=== PATIENT | female | born 1950 | race Caucasian/White ===

== ENCOUNTER 2020-05-14 12:32 | Emergency (ER) | payer MEDICARE, BC ==
--- NOTE | 2020-05-14 15:19 | EDM.PDOC ---
ED HPI GENERAL MEDICAL PROBLEM - General Chief Complaint: General Stated Complaint: DRIVE IN COVID TEST Time Seen by Provider: 05/14/20 12:32 Source of Information: Reports: Patient History Limitations: Reports: No Limitations - History of Present Illness INITIAL COMMENTS - FREE TEXT/NARRATIVE: Pt came into the emergency department with concerns regarding COVID19 testing. Patient states that she has had symptoms of runny nose, cough, chest congestion, sore throat and fatigue and low-grade fever for the last 24 hours. Patient was also at a wedding yesterday and she is concerned since she was with a large amount of people. She states that she has not had any other symptoms or concerns. She denies any chest pain, shortness of breath, headache, dizziness, GI upset, edema. Dates she is been relatively healthy and has no other concerns or complaints currently. Nuys any symptoms progressively getting worse or better. Patient also states that she was around a large amount of cam[place] the last couple days states that her eyes have been more itchy and her nose has been running more. She describes the drainage as a clear drainage. Onset: Gradual Quality: Reports: Other Severity: Mild Improves with: Reports: None Worsens with: Reports: None Associated Symptoms: Reports: No Other Symptoms - Related Data Allergies Allergy/AdvReac Type Severity Reaction Status Date / Time peanut Allergy Airway Verified 07/13/15 12:23 Tightness penicillin Allergy Shortness Verified 07/12/15 10:34 of Breath Home Meds: Home Meds Aspirin [Halfprin] 81 mg PO DAILY 07/12/15 [History] Cholecalciferol (Vitamin D3) [Vitamin D3] 2,000 units PO DAILY 07/12/15 [History] Pravastatin [Pravachol] 20 mg PO DAILY 07/12/15 [History] Sertraline [Zoloft] 1 tab PO DAILY 07/12/15 [History] amLODIPine [Norvasc] 5 mg PO DAILY 07/12/15 [History] Past Medical History - Past Health History Medical/Surgical History: Denies Medical/Surgical History Other Genitourinary History: FM HX COLON CA ED ROS GENERAL - Review of Systems Review Of Systems: Comprehensive ROS is negative, except as noted in HPI. Constitutional: Reports: No Symptoms HEENT: Reports: No Symptoms Cardiovascular: Reports: No Symptoms Endocrine: Reports: No Symptoms GI/Abdominal: Reports: No Symptoms Musculoskeletal: Reports: No Symptoms Skin: Reports: No Symptoms Neurological: Reports: No Symptoms Psychiatric: Reports: No Symptoms Hematologic/Lymphatic: Reports: No Symptoms ED EXAM, GENERAL - Physical Exam Exam: See Below Exam Limited By: No Limitations General Appearance: Alert, WD/WN, No Apparent Distress Nose: Normal Inspection, Normal Mucosa, Nasal Drainage, Clear Rhinorrhea Throat/Mouth: Normal Inspection, Normal Lips, Normal Teeth, Normal Voice, No Airway Compromise Head: Atraumatic, Normocephalic Neck: Normal Inspection, Supple, Non-Tender, Full Range of Motion Respiratory/Chest: No Respiratory Distress, Lungs Clear, Normal Breath Sounds, No Accessory Muscle Use, Chest Non-Tender Cardiovascular: Normal Peripheral Pulses, Regular Rate, Rhythm, No Edema, No Rub Peripheral Pulses: 4+: Radial (L), Radial (R) GI/Abdominal: Normal Bowel Sounds, Soft, Non-Tender, No Distention Extremities: Normal Inspection, No Pedal Edema, Normal Capillary Refill Neurological: Alert, Oriented, CN II-XII Intact, Normal Cognition Psychiatric: Normal Affect, Normal Mood Skin Exam: Warm, Dry, Intact, Normal Color Course - Orders/Labs/Meds Orders: Active Orders 24 hr Category Date Time Status CORONAVIRUS COVID-19 PCR [facility] Stat Lab 05/14/20 15:11 Ordered Departure - Departure Time of Disposition: 12:40 Disposition: Home, Self-Care 01 Condition: Good Clinical Impression: Allergies Qualifiers: Encounter type: initial encounter Qualified Code(s): T78.40XA - Allergy, unspecified, initial encounter - Discharge Information *PRESCRIPTION DRUG MONITORING PROGRAM REVIEWED*: Not Applicable *COPY OF PRESCRIPTION DRUG MONITORING REPORT IN PATIENT SACHI: Not Applicable Instructions: Allergies, Adult, [id number] Forms: ED Department Discharge Additional Instructions: 1. rest 2. increase your water intake 3. Continue all at home medications 4. Activity and diet as tolerated 5. Can take over the counter Tylenol or ibuprofen for any pain or discomfort 6. Follow up with PCP if symptoms continue, return, or progress 7. Call with any questions or concerns - My Orders Last 24 Hours: My Active Orders 05/14/20 15:11 CORONAVIRUS COVID-19 PCR [facility] Stat - Assessment/Plan Last 24 Hours: My Active Orders 05/14/20 15:11 CORONAVIRUS COVID-19 PCR [facility] Stat Assessment:: 1. covid- test 2. cough 3. sore throat 4. headache Plan: 1. Covid-19- ER drive up testing completed. 2. Negative results called to the patient 3. Patient and nursing staff was updated regarding the plan of care 4. Education provided the patient regarding activity, diet, rest, [id number] medication modalities, and follow-up care was provided 5. Patient and family are agreeable to the above plan of care 6. All questions and concerns were addressed with the patient and family prior to discharge
[2020-05-14 16:49] VITALS: BP 141/81; PULSE 53
== END 2020-05-14 12:43 | disposition home or self-care (01) ==
LOC: VM.ED 12:32
DX: T78.40XA Allergy, unspecified, initial encounter (principal); Z20.828 Contact with and (suspected) exposure to other viral communicable diseases; Z91.010 Allergy to peanuts; Z88.0 Allergy status to penicillin; Z79.82 Long term (current) use of aspirin; Z79.899 Other long term (current) drug therapy
CPT/HCPCS: 99283; U0002

== ENCOUNTER 2021-02-09 10:38 | Day surgery (SDC) | payer MEDICARE, BC ==
[~2021-02-09 10:38] MED LIST: Lactated Ringers 1,000 ML IV SCH
[2021-02-09] MEDS ORDERED: Propofol 200 MG/20 ML SDV ONE ×5 (14:00→14:46)
[2021-02-09 15:30] VITALS: BP 116/72; PULSE 70
--- NOTE | 2021-02-10 09:39 | OR ---
DATE OF SURGERY: 02/09/2021 REFERRING PROVIDER: Ruth Valdes PA-C PRE-OPERATIVE DIAGNOSES: 1. Positive family history of colon cancer in both parents. The patient's last colonoscopy was 07/2015 and was normal. 2. Chronic constipation. The patient states she did throw up with the prep last night and had noted brown liquid stools at the end of the prep. POST-OPERATIVE DIAGNOSES: 1. Tortuous colon. I was only able to advance the scope to the mid right colon despite using multiple maneuvers and turning the patient onto her back. 2. Mild hemorrhoids. 3. Prep was fair to poor, which did affect visualization somewhat. PROCEDURE: Colonoscopy, but only able to advance to the mid right colon. SURGEON: Yuriy Salomon M.D. ANESTHESIA: Monitored anesthesia care. BOWEL PREP: Fair to poor, which did affect visualization. Maria R is a 70-year-old female, who was brought to the endoscopy suite after discussing risks and benefits of the procedure. Informed consent was obtained for conscious sedation and colonoscopy with or without biopsy and/or polypectomy. We also discussed possibility of missed lesions. Pre-procedure exam was unremarkable. IV, oxygen, and monitors were placed. The patient was placed in the left lateral decubitus position. Sedation was administered and a digital rectal exam was performed and unremarkable. Colonoscope was passed into the rectum and slowly advanced to the mid right colon. The patient did have a tortuous colon. Despite multiple scope maneuvers and moving the patient onto her back, I was only able to advance to the mid right colon. Prep was fair to poor, which did affect visualization somewhat as well. The colonoscope was slowly withdrawn and the mucosa closely observed in direct circumferential manner. The distal ascending colon was unremarkable. The transverse colon was unremarkable. The descending colon was unremarkable. The sigmoid colon was unremarkable. Retroflexion was performed and rectal mucosa revealed some mild hemorrhoids. Scope was removed. The patient tolerated the procedure well. The patient was monitored until that baseline status. Discharge instructions were reviewed and the patient was discharged in good condition. COMPLICATIONS: None. TOTAL TIME: 46 minutes. ESTIMATED BLOOD LOSS: None. RECOMMENDATIONS/FOLLOW-UP: Given the fact that I was only able to advance to the mid right colon as well as the prep being fair to poor, I would recommend an earlier followup within 3 to 4 years given the strong family history of colon cancer, sooner if any symptoms of rectal bleeding or anemia. I would like to kindly thank Ruth Valdes for this referral. DMB: 02/09/2021 15:43:12 MODL: 02/09/2021 22:12:18 /[id number]
== END 2021-02-09 15:45 | disposition home or self-care (01) ==
LOC: VM.SDS 10:38
PROVIDERS: ATTEND Family Medicine
DX: Z12.11 Encounter for screening for malignant neoplasm of colon (principal); K63.89 Other specified diseases of intestine; K64.9 Unspecified hemorrhoids; K59.09 Other constipation; I10 Essential (primary) hypertension; E78.00 Pure hypercholesterolemia, unspecified; E78.5 Hyperlipidemia, unspecified; Z01.812 Encounter for preprocedural laboratory examination; Z20.822 Contact with and (suspected) exposure to COVID-19; Z80.0 Family history of malignant neoplasm of digestive organs; Z88.0 Allergy status to penicillin; Z91.018 Allergy to other foods; Z79.899 Other long term (current) drug therapy; Z98.890 Other specified postprocedural states
CPT/HCPCS: 00812; J2704; J7120; U0002

== ENCOUNTER 2024-12-25 07:35 | Day surgery (SDC) | payer MEDICARE, BC ==
[2024-12-25] MEDS: Lactated Ringers 1,000 ML IV SCH (07:47)
[2024-12-25] MEDS ORDERED: fentaNYL 100 MCG/2 ML SDV ONE (08:59)
[2024-12-25] MEDS ORDERED: Propofol 200 MG/20 ML SDV ONE ×3 (08:59→09:49)
[2024-12-25] MEDS ORDERED: Potassium Chloride Riders 0 ML ONE (09:17)
[2024-12-25 10:50] VITALS: BP 132/76; PULSE 72
== END 2024-12-25 11:49 | disposition home or self-care (01) ==
LOC: VM.SDS 07:35
PROVIDERS: ATTEND Student in an Organized Health Care Education/Training Program
DX: D12.2 Benign neoplasm of ascending colon (principal); D12.3 Benign neoplasm of transverse colon; D36.10 Benign neoplasm of peripheral nerves and autonomic nervous system, unspecified; K29.50 Unspecified chronic gastritis without bleeding; K44.9 Diaphragmatic hernia without obstruction or gangrene; Z88.0 Allergy status to penicillin; Z91.013 Allergy to seafood; D50.9 Iron deficiency anemia, unspecified; Z80.0 Family history of malignant neoplasm of digestive organs
CPT/HCPCS: 00811; 88305; 88342; 99100; J2704; J3010; J3480; J7120